=== PATIENT | male | born 1990 | race Caucasian/White ===

== ENCOUNTER 2017-07-05 12:43 | Emergency (ER) | payer OTHER ==
[~2017-07-05] VITALS: Ht 175.3 cm; Wt 90.9 kg
[2017-07-05] MEDS ORDERED: dayquil PO (12:52)
[2017-07-05] MEDS ORDERED: NS 1,000 ML IV ONE ×2 (13:15→14:45)
[2017-07-05] MEDS ORDERED: KETOROLAC 30 MG/ML VIAL (J1885) IV ONE (13:15)
[2017-07-05 13:55] LABS: BASO % 0.6 % (0.0-1.0); EOS % 0.6 % (0.0-3.0); IMMATURE GRANULOCYTE % 0.2 % (0-0); LYMPH # 1.2 10^3/uL (1.5-6.5); LYMPH % 23.1 % (24.0-44.0); MEAN CORPUSCULAR HEMOGLOBIN 29.5 pg (27.0-33.0); MEAN CORPUSCULAR HGB CONC 35.4 g/dl (32.0-36.5); MEAN CORPUSCULAR VOLUME 83.4 fl (80.0-96.0); MONO # 0.5 10^3/uL (0.0-0.8); MONO % 10.2 % (0.0-5.0); NEUTROPHILS # 3.4 10^3/uL (1.8-7.7); NEUTROPHILS % 65.3 % (36.0-66.0); PLATELET COUNT, AUTOMATED 146 10^3/uL (150-450); WHITE BLOOD COUNT 5.3 10^3/uL (4.0-10.0)
[2017-07-05 14:12] LABS: CONTROL LINE MONO INT CTR LINE PRESENT
[2017-07-05 14:19] LABS: ANION GAP 4 MEQ/L (8-16); BLOOD UREA NITROGEN 12 MG/DL (7-18); CALCIUM LEVEL 8.4 MG/DL (8.5-10.1); CARBON DIOXIDE LEVEL 29 MEQ/L (21-32); CHLORIDE LEVEL 104 MEQ/L (98-107); CREATININE FOR GFR 1.54 MG/DL (0.70-1.30); GLOMERULAR FILTRATION RATE 58.9 (>60); GLUCOSE, FASTING 130 MG/DL (70-105); POTASSIUM SERUM 3.9 MEQ/L (3.5-5.1); SODIUM LEVEL 137 MEQ/L (136-145)
--- NOTE | 2017-07-05 14:45 | REP ---
SCROTAL ULTRASOUND: HISTORY: Pain. The right testis measures 4.3 x 2.1 x 3.6 cm. The left testis measures 4.1 x 2.2 x 3.1 cm. The right epididymis measures 6.9 mm. The left epididymis measures 8.8 mm. There is no hydrocele or mass. A small 4 mm left varicocele is present. IMPRESSION: Small 4 mm left varicocele. Signed by Jerod Hernandez MD 07/05/2017 03:10 P
[2017-07-05] MEDS ORDERED: PENI500T PO (15:05)
[2017-07-05 15:49] VITALS: BP 115/57
== END 2017-07-05 15:56 | disposition home or self-care (01) ==
LOC: M ED 12:43
DX: J02.0 Streptococcal pharyngitis (principal); N00.9 Acute nephritic syndrome with unspecified morphologic changes; I86.1 Scrotal varices
CPT/HCPCS: 76870; 80048; 81001; 82550; 85025; 86308; 87880; 93976; 96361; 96374; 99284; J1885